=== PATIENT | male | born 1995 | race Caucasian/White ===

== ENCOUNTER 2018-04-12 12:20 | Emergency (ER) | payer BC, SELFPAY ==
[2018-04-12 12:23] VITALS: BP 127/80; PULSE 84; RESP 16; TEMP 36.6; O2SAT 96
[2018-04-12] MEDS: Dexamethasone 10 MG/ML VIAL IM (12:25)
[2018-04-12] MEDS: Ketorolac 15 MG/ML VIAL IM (12:26)
--- NOTE | 2018-04-12 12:29 | W.ED.GENAD ---
Discharge Plan Disposition Patient Disposition: HOME Condition: Good Discharge Details Chief Complaint: RespSymp Clinical Impression: Upper respiratory infection, viral, Congestion of nasal sinus Primary Care Provider: Kris Guadalupe ED Provider: Mario Mack Home Meds and New Rx's Prescriptions: New albuterol sulfate 90 mcg/actuation HFA aerosol inhaler 1 puff IH Q6H PRN (Reason: shortness of breath or wheezing) Qty: 6.7 RF: 0 diphenhydramine HCl 25 mg capsule 25 mg PO .nightly Qty: 10 RF: 0 Discharge Instructions Instructions: Upper Respiratory Infection (ED) Additional Instructions: Please stop smoking. Please take your albuterol every 4-6 hours while your symptoms persist. Please use the [place] pot as we discussed, please take the Benadryl at night to help with nasal congestion. If you notice any worsening of your symptoms, or any new symptoms such as vomiting, diarrhea, fever, chills, shortness of breath, chest pain, numbness, weakness, or fainting , please return immediately to the emergency department for reevaluation. Please follow up with your primary care provider as soon as possible for reassessment and reevaluation. As always, it was a pleasure participating in your medical care today. Referrals: Kris Guadalupe MD [Primary Care Provider] - Medical Decision Making This is a 23-year-old male with no significant past medical history who does smoke, who presents today for congestion, cough, and upper respiratory infection symptoms. Is been present for 1 week. Physical exam demonstrates no concerning physical exam findings for pneumonia, no hypoxemia, no tachycardia, no fever. Signs and symptoms are consistent with a viral upper respiratory infection most likely worsened by his chronic tobacco use. We will give Decadron and Toradol here in the ED as he has no red flags as a contraindication for his Decadron or Toradol. We will recommend Nus[place] pot at home, and Benadryl for congestion. We discussed red flags which return the patient understands. We also had a long discussion about smoking cessation. I have extensively reviewed the treatment plan and discharge instructions with the patient and their family. I have addressed all patient concerns at this time. The patient and family was made aware of what symptoms to monitor for that would warrant a return to the emergency department. Discussed the plan with the patient and family, they demonstrate verbal understanding and agreement with our assessment and plan at this time. HPI General Date/Time Provider Initiated Documentation: 04/12/18 12:28. HPI Narrative: This is a 23-year-old male with a significant past medical history who presents today for evaluation of 1 week of congestion, cough, some mild productive yellow sputum, mild sore throat, and runny nose, who smokes less than 1 pack/day/day. Patient states that he has had no associated fever, he denies myalgias, chills, chest pain, shortness of breath. He denies any headache, vision changes. Patient denies any other significant sick contacts however he is at school with multiple interactions throughout the day. Patient denies any other complaints at this time. He has not been on any recent antibiotics. He has no previous surgeries, he denies any medications. He denies any IV or illicit drug use Related Data Home Medications Medication Instructions Recorded Confirmed albuterol sulfate 1 puff IH Q6H PRN #6.7 gm 04/12/18 diphenhydramine HCl 25 mg PO .nightly #10 cap 04/12/18 Previous Rx's Medication Instructions Recorded albuterol sulfate 1 puff IH Q6H PRN #6.7 gm 04/12/18 diphenhydramine HCl 25 mg PO .nightly #10 cap 04/12/18 General Stated Complaint: RespSymp JONI: 4 Review of Systems Review of Systems All systems reviewed & are unremarkable except as noted in HPI and below PFSH Social History Smoking/Tobacco Use Status: Current every day Exam Narrative Exam Narrative: 1.Const: Well-nourished, Well-developed, appearing stated age 2.Eyes: PERRL, no conjunctival injection, and symmetrical lids. 3.ENT: Atraumatic external nose and ears. Moist MM. Neck: Symmetric, trachea midline, No thyromegaly. Cobblestoning in the posterior oropharynx. Minimal erythema. No tonsillar exudates. No swollen tonsils. No significant cervical lymphadenopathy. No frontal or maxillary sinus tenderness on percussion. Mild congestion noted in the nares bilaterally. Ears demonstrate no signs of infection, effusion, or fluid. 4.CVS: +S1/S2, No murmurs or gallops. Peripheral pulses 2+ and equal in all extremities. Brisk capillary refill in all extremities. 5.RESP: Unlabored respiratory effort. Clear to auscultation bilaterally. No wheezes rales or rhonchi, no intercostal retractions, no signs of respiratory distress. 6.GI: Soft, Nontender/Nondistended, No hepatosplenomegaly. No guarding or rebound. 7.MSK: Normocephalic/Atraumatic, Extremities w/o deformity or ttp No cyanosis or clubbing, Normal movement of all extremities 8.Skin: Warm, Dry. No rashes or lesions. 9.Neuro: production machine tender II-XII grossly intact. Sensation grossly intact, no focal neurologic deficits. 10.Psych: (AAO) x3. Appropriate mood and affect Course Vital Signs Temperature 36.6 C 04/12/18 12:23 Pulse 84 04/12/18 12:23 Respiratory Rate 16 04/12/18 12:23 Blood Pressure 127/80 04/12/18 12:23 Pulse Oximetry 96 04/12/18 12:23 Temperature 36.6 C 04/12/18 12:23 Temperature Source Skin 04/12/18 12:23 Pulse 84 04/12/18 12:23 Respiratory Rate 16 04/12/18 12:23 Blood Pressure 127/80 04/12/18 12:23 Blood Pressure Position Sitting 04/12/18 12:23 Pulse Oximetry 96 04/12/18 12:23 Oxygen Delivery Method Room Air 04/12/18 12:23 Oxygen Flow Rate 0 04/12/18 12:23
--- NOTE | 2018-04-12 12:34 | ED.GENADUL_ITS ---
Discharge Plan Disposition Patient Disposition: HOME Condition: Good Discharge Details Chief Complaint: RespSymp Clinical Impression: Upper respiratory infection, viral, Congestion of nasal sinus Primary Care Provider: Kris Guadalupe ED Provider: Mairo Mack Home Meds and New Rx's Prescriptions: New albuterol sulfate 90 mcg/actuation HFA aerosol inhaler 1 puff IH Q6H PRN (Reason: shortness of breath or wheezing) Qty: 6.7 RF: 0 diphenhydramine HCl 25 mg capsule 25 mg PO .nightly Qty: 10 RF: 0 Discharge Instructions Instructions: Upper Respiratory Infection (ED) Additional Instructions: Please stop smoking. Please take your albuterol every 4-6 hours while your symptoms persist. Please use the [place] pot as we discussed, please take the Benadryl at night to help with nasal congestion. If you notice any worsening of your symptoms, or any new symptoms such as vomiting, diarrhea, fever, chills , shortness of breath, chest pain, numbness, weakness, or fainting , please return immediately to the emergency department for reevaluation. Please follow up with your primary care provider as soon as possible for reassessment and reevaluation. As always, it was a pleasure participating in your medical care today. Referrals: Kris Guadalupe MD [Primary Care Provider] - Medical Decision Making This is a 23-year-old male with no significant past medical history who does smoke, who presents today for congestion, cough, and upper respiratory infection symptoms. Is been present for 1 week. Physical exam demonstrates no concerning physical exam findings for pneumonia, no hypoxemia, no tachycardia, no fever. Signs and symptoms are consistent with a viral upper respiratory infection most likely worsened by his chronic tobacco use. We will give Decadron and Toradol here in the ED as he has no red flags as a contraindication for his Decadron or Toradol. We will recommend [place] pot at home, and Benadryl for congestion. We discussed red flags which return the patient understands. We also had a long discussion about smoking cessation. I have extensively reviewed the treatment plan and discharge instructions with the patient and their family. I have addressed all patient concerns at this time. The patient and family was made aware of what symptoms to monitor for that would warrant a return to the emergency department. Discussed the plan with the patient and family, they demonstrate verbal understanding and agreement with our assessment and plan at this time. HPI General Date/Time Provider Initiated Documentation: 04/12/18 12:28 . HPI Narrative: This is a 23-year-old male with a significant past medical history who presents today for evaluation of 1 week of congestion, cough , some mild productive yellow sputum, mild sore throat, and runny nose, who smokes less than 1 pack/day/day. Patient states that he has had no associated fever, he denies myalgias, chills, chest pain, shortness of breath. He denies any headache, vision changes. Patient denies any other significant sick contacts however he is at school with multiple interactions throughout the day. Patient denies any other complaints at this time. He has not been on any recent antibiotics. He has no previous surgeries, he denies any medications. He denies any IV or illicit drug use Related Data Home Medications Medication Instructions Recorded Confirmed albuterol sulfate 1 puff IH Q6H PRN #6.7 gm 04/12/18 diphenhydramine HCl 25 mg PO .nightly #10 cap 04/12/18 Previous Rx's Medication Instructions Recorded albuterol sulfate 1 puff IH Q6H PRN #6.7 gm 04/12/18 diphenhydramine HCl 25 mg PO .nightly #10 cap 04/12/18 General Stated Complaint: RespSymp JONI: 4 Review of Systems Review of Systems All systems reviewed & are unremarkable except as noted in HPI and below PFSH Social History Smoking/Tobacco Use Status: Current every day Exam Narrative Exam Narrative: 1.Const: Well-nourished, Well-developed, appearing stated age 2.Eyes: PERRL, no conjunctival injection, and symmetrical lids. 3.ENT: Atraumatic external nose and ears. Moist MM. Neck: Symmetric, trachea midline, No thyromegaly. Cobblestoning in the posterior oropharynx. Minimal erythema. No tonsillar exudates. No swollen tonsils. No significant cervical lymphadenopathy. No frontal or maxillary sinus tenderness on percussion. Mild congestion noted in the nares bilaterally. Ears demonstrate no signs of infection, effusion, or fluid. 4.CVS: +S1/S2, No murmurs or gallops. Peripheral pulses 2+ and equal in all extremities. Brisk capillary refill in all extremities. 5.RESP: Unlabored respiratory effort. Clear to auscultation bilaterally. No wheezes rales or rhonchi, no intercostal retractions, no signs of respiratory distress. 6.GI: Soft, Nontender/Nondistended, No hepatosplenomegaly. No guarding or rebound. 7.MSK: Normocephalic/Atraumatic, Extremities w/o deformity or ttp No cyanosis or clubbing, Normal movement of all extremities 8.Skin: Warm, Dry. No rashes or lesions. 9.Neuro: newcomer hostess II-XII grossly intact. Sensation grossly intact, no focal neurologic deficits. 10.Psych: (AAO) x3. Appropriate mood and affect Course Vital Signs Temperature 36.6 C 04/12/18 12:23 Pulse 84 04/12/18 12:23 Respiratory Rate 16 04/12/18 12:23 Blood Pressure 127/80 04/12/18 12:23 Pulse Oximetry 96 04/12/18 12:23 Temperature 36.6 C 04/12/18 12:23 Temperature Source Skin 04/12/18 12:23 Pulse 84 04/12/18 12:23 Respiratory Rate 16 04/12/18 12:23 Blood Pressure 127/80 04/12/18 12:23 Blood Pressure Position Sitting 04/12/18 12:23 Pulse Oximetry 96 04/12/18 12:23 Oxygen Delivery Method Room Air 04/12/18 12:23 Oxygen Flow Rate 0 04/12/18 12:23
== END 2018-04-12 12:45 | disposition home or self-care (01) ==
PROVIDERS: Emergency Provider Student in an Organized Health Care Education/Training Program; PCP General Practice
DX: J06.9 Acute upper respiratory infection, unspecified (principal); R09.81 Nasal congestion; F17.210 Nicotine dependence, cigarettes, uncomplicated
CPT/HCPCS: 96372; 99284; J1100; J1885

== ENCOUNTER 2018-06-06 18:06 | Emergency (ER) | payer BC, SELFPAY ==
[2018-06-06 18:14] VITALS: BP 118/73; PULSE 84; RESP 18; TEMP 36.8
--- NOTE | 2018-06-06 18:19 | ED.GENADUL_ITS ---
Discharge Plan Disposition Patient Disposition: HOME Condition: Stable Discharge Details Chief Complaint: Sorethroat Clinical Impression: Strep pharyngitis Reason For Visit: swollen lymph nodes / facial sore Primary Care Provider: Kris Guadalupe ED Provider: Estrellita Pillai Home Meds and New Rx's Prescriptions: Continue albuterol sulfate 90 mcg/actuation HFA aerosol inhaler 1 puff IH Q6H PRN (Reason: shortness of breath or wheezing) Qty: 6.7 RF: 0 acetaminophen [Tylenol] 325 mg Tablet 2 PRNRF: 0 naproxen 250 mg Tablet 1 tab PO PRNRF: 0 Discharge Instructions Instructions: Pharyngitis (ED) Additional Instructions: Drink plenty of fluids and get plenty of rest. Alternate Tylenol and Motrin as needed and directed for pain or fever. Follow-up with your primary care doctor in 1 week for re-evaluation. Return immediately to the emergency department any worsening or new concerning symptoms. Stand Alone Forms: School Release, Work Release Discharge Data Discharge Physician: Estrellita Pillai Medical Decision Making 23yo M who presents with sore throat, left ear pain, diarrhea, lower abdominal pain, swollen lymph nodes, fatigue and headache for the past 5 days. Vitals within normal limits. Afebrile. Patient appears nontoxic. Posterior pharyngeal erythema, edema and exudates. No peritonsillar mass noted. Uvula midline. Patient has bilateral anterior cervical and submandibular lymphadenopathy but no evidence of Davi's angina, drooling or trismus. Lungs clear to auscultation. Abdomen soft nontender. No hepatosplenomegaly. Symptom presentation appears more consistent with likely mono, may also be viral syndrome or strep pharyngitis. Will check a rapid strep and [place] screening. 1899 --mono screen negative. Rapid strep positive. Patient preferred Bicillin injection over p.o. antibiotics. Patient also informed that there is a small percentage of mono screening that can be false negative. Informed of possible drug rash with pcn in mono. Pt instructed on the importance of plenty of fluids and rest, alternating Tylenol and Motrin. Patient instructed to follow-up with primary care doctor for reevaluation and to return here if worse. HPI General Mode of arrival: ambulatory . Date/Time Provider Initiated Documentation: 06/06/18 18:07 . Limitations to Documentation: no limitations . Information obtained by: patient . HPI Narrative: Patient is a 23-year-old male who presents to the ED with complaint of sore throat, swollen glands in the neck, diarrhea, lower abdominal pain, left ear pain, headache and fatigue for the past several days. Patient admits to chills and feeling warm but denies known fever. Patient states he has been eating and drinking normally. Past medical history: Anxiety, depression Surgical history: None Social history: Daily marijuana use 2-3 times daily, denies tobacco or alcohol Medications: Albuterol as needed Allergies: None PCP: Dr. Guadalupe Related Data Home Medications Medication Instructions Recorded Confirmed albuterol sulfate 1 puff IH Q6H PRN #6.7 gm 04/12/18 acetaminophen [Tylenol] 2 PRN 06/06/18 naproxen 1 tab PO PRN 06/06/18 Previous Rx's Medication Instructions Recorded albuterol sulfate 1 puff IH Q6H PRN #6.7 gm 04/12/18 Allergies Allergy/AdvReac Type Severity Reaction Status Date / Time No Known Allergies Allergy Unverified 06/06/18 18:17 General Stated Complaint: Sorethroat JONI: 4 Review of Systems Review of Systems All systems reviewed & are unremarkable except as noted in HPI and below Constitutional Reports chills, Denies excessive sweating, Reports fatigue, Denies fever(s), Denies weakness and Denies weight loss Eyes Reports system reviewed and no additional complaints, except as docu and Denies blurry vision ENT Denies vertigo, Denies dizziness, Reports otalgia, Denies nasal congestion, Reports sore throat and Reports throat swelling Cardiovascular Denies chest pain, Denies syncope, Denies rapid heart rate and Denies dyspnea Respiratory Denies dyspnea Gastrointestinal Denies abdominal pain, Reports diarrhea and Denies vomiting Genitourinary Denies hematuria, Denies dysuria and Denies flank pain Musculoskeletal Denies back pain and Denies joint swelling Integumentary/Breasts Denies lesions and Denies rash Neurologic Denies behavioral changes, Denies confusion, Denies vertigo, Denies dizziness, Denies syncope and Denies weakness Psychiatric Denies behavioral changes, Denies confusion and Denies depression Endocrine Denies excessive sweating and Reports fatigue Hematologic/Lymphatic Denies easy bruising and Denies lymphadenopathy Allergic/Immunologic Reports throat swelling PFS Social History Smoking/Tobacco Use Status: Former Tobacco Use Exam Const General: cooperative and healthy appearing Orientation: alert and awake [facility] Head: normal to inspection Ears: hearing grossly normal bilaterally, external ears normal and TM's normal bilaterally General nose exam: external nose normal Face and sinus: normal facial exam Mouth: oral mucosae normal Teeth and gingiva: dentition normal Throat: uvula midline, no peritonsillar masses, posterior oropharynx abnormal (b /l tonsillar edema/erythema/exudates) and no uvular edema Eyes General: appearance normal, both eyes and all related structures Eyelids: eyelids normal Pupils: PERRL EOM: EOM intact bilaterally Neck Other: Tender midline submandibular and bilateral anterior cervical lymphadenopathy. Chest Chest: normal inspection of the chest Resp Effort & Inspection: normal respiratory effort and able to speak in complete sentences Auscultation: clear to auscultation bilaterally Cardio Rate: regular rate Rhythm: regular rhythm GI Inspection: normal to inspection Palpation: soft, not firm, no guarding, no hepatosplenomegaly, no masses and nontender Auscultation: normal bowel sounds Skin General skin exam: no rashes or lesions noted Neuro General: alert and awake Cognition: normal cognition Speech: speech normal Gait: normal gait Motor: muscle tone normal throughout Sensory Exam: no sensory deficits noted Extrem General: normal to inspection, full ROM and normal capillary refill Psych Appearance: grossly normal Mental Status: mental status grossly normal Speech and Movement: speech and movement normal Affect: normal affect Thought Process: normal Course Vital Signs Temperature 98.2 F 06/06/18 18:14 Pulse 84 06/06/18 18:14 Respiratory Rate 18 06/06/18 18:14 Blood Pressure 118/73 06/06/18 18:14 Temperature 98.2 F 06/06/18 18:14 Temperature Source Temporal Artery Scan 06/06/18 18:14 Pulse 84 06/06/18 18:14 Respiratory Rate 18 06/06/18 18:14 Respiratory Effort 06/06/18 18:15 Blood Pressure 118/73 06/06/18 18:14 Blood Pressure Position Sitting 06/06/18 18:14 Oxygen Delivery Method Room Air 06/06/18 18:14 Oxygen Flow Rate 0 06/06/18 18:14
[2018-06-06 18:55] LABS: Mono Screening Negative (Negative)
== END 2018-06-06 19:55 | disposition home or self-care (01) ==
LOC: ER 19:53
PROVIDERS: Emergency Provider Physician Assistant; PCP General Practice
DX: J02.0 Streptococcal pharyngitis (principal)
CPT/HCPCS: 36415; 87880; 96372; 99284; 86308; J0561

== ENCOUNTER 2019-02-27 10:32 | Outpatient (CLI) | payer BC, SELFPAY ==
[2019-02-28 11:09] LABS: Hemoglobin S Screen Neg (NEG)
== END 2019-02-27 10:52 ==
PROVIDERS: PCP General Practice; Visit Provider General Practice
DX: Z13.0 Encounter for screening for diseases of the blood and blood-forming organs and certain disorders involving the immune mechanism (principal); Z02.0 Encounter for examination for admission to educational institution
CPT/HCPCS: 36415; 85660

== ENCOUNTER 2019-11-04 12:30 | Emergency (ER) | payer BC, SELFPAY ==
[2019-11-04 12:35] VITALS: BP 144/91; PULSE 84; RESP 18; TEMP 37.4; O2SAT 100
--- NOTE | 2019-11-04 12:39 | ED.GENADUL_ITS ---
Discharge Plan Disposition Patient Disposition: HOME Condition: Improving Discharge Details Chief Complaint: Orthopedic Clinical Impression: Left ankle sprain Primary Care Provider: None,None ED Provider: Ezio Burnett Home Meds and New Rx's Prescriptions: No Action No Known Home Meds RF: 0 Discharge Instructions Instructions: Ankle Sprain (ED) Additional Instructions: May remove stabilizer well in bed or for bathing. Use rest, ice, elevation to reduce pain and swelling. You may use Tylenol and/or ibuprofen as needed for pain. Use crutches as we discussed, as needed 3 to 5 days time and then slowly wean from the ankle stabilizer. Return to the emergency department for any acute concerns. Medical Decision Making 24-year-old male presents from home after spraining his left ankle yesterday while playing basketball. He is developed progressive left lateral malleoli are swelling with ecchymosis and intolerance of significant weightbearing, but has been ambulatory. Differential diagnosis includes underlying fracture versus sprain. X-ray with evidence of significant soft tissue swelling, but no underlying bony abnormality. He does have significant sprain. Will place in a ankle stabilizer with crutches to be used as needed. Understands slow weaning from crutches and then weaning from the walking boot. Discussed with him return indications as well as home management. Stable for discharge home at this time. HPI General Mode of arrival: ambulatory . Date/Time Provider Initiated Documentation: 11/04/19 12:39 . Limitations to Documentation: no limitations . Information obtained by: patient . History of Present Illness 24 year old M presents to the emergency department with the chief complaint of Ankle pain left, described as moderate, Quality is described as dull and constant, and is localized to the left and lower extremity. Patient reports no radiation. Patient started experiencing this hour(s) and it has been constant. Rest improves symptom(s), Movement worsens symptoms . Patient notes no other symptoms.. Related Data Home Medications Medication Instructions Recorded Confirmed Unknown [No Known Home Meds] 11/04/19 11/04/19 Allergies Allergy/AdvReac Type Severity Reaction Status Date / Time No Known Allergies Allergy Unverified 11/04/19 12:38 General Stated Complaint: Orthopedic JONI: 4 Review of Systems Narrative: Did not injure himself in any other way. Recently has been well. 4 systems reviewed and otherwise negative [facility] Social History Smoking/Tobacco Use Status: Former Tobacco Use Alcohol Intake: current Alcohol Intake frequency: a few times a month Drug use: Daily Substance use type: marijuana Do you feel safe at home: Yes Do you feel safe in your relationship?: Yes Exam Narrative Exam Narrative: GEN: awake, alert, oriented 3. Pleasant, well groomed, interactive. HEAD: Normocephalic, atraumatic ENT: Mucous membranes moist, oropharynx unremarkable, External ear exam unremarkable EYES: PERRL, EOMI NECK: Full ROM, no JAVY, no menigismus EXT: Right lower extremity unremarkable, left lower extremity with lateral malleoli are swelling, tenderness, bruising through the lateral foot. Motion is limited by pain but strength is intact. Capillary fill less than 2 seconds Neuro: Grossly normal neurologic exam, conversant, interactive. Psych: Speech fluent, thoughts congruent, affect normal Course Vital Signs Vital signs: Vital Signs Temperature 37.4 C 11/04/19 12:35 Pulse 84 11/04/19 12:35 Respiratory Rate 18 11/04/19 12:35 Blood Pressure 144/91 H 11/04/19 12:35 Pulse Oximetry 100 11/04/19 12:35 Temperature 37.4 C 11/04/19 12:35 Temperature Source Temporal Artery Scan 11/04/19 12:35 Pulse 84 11/04/19 12:35 Respiratory Rate 18 11/04/19 12:35 Blood Pressure 144/91 H 11/04/19 12:35 Blood Pressure Position Sitting 11/04/19 12:35 Pulse Oximetry 100 11/04/19 12:35 Oxygen Delivery Method Room Air 11/04/19 12:35 Oxygen Flow Rate 0 11/04/19 12:35 Pain Level 3 11/04/19 12:35
--- NOTE | 2019-11-04 13:00 | DI.RAD_ITS ---
EXAM: XR ANKLE LT COMPLETE CLINICAL HISTORY: lateral pain and swelling TECHNIQUE: 2D digital imaging was performed. COMPARISON: No exams were available for comparison FINDINGS: BONES: No acute fracture is present. No bony destructive lesion is seen. JOINTS:The ankle mortise is normally aligned. SOFT TISSUE: Moderate soft tissue swelling is seen laterally. IMPRESSION: No acute fracture or dislocation. DATA REPOSITORY: RADIATION DOSE DELIVERED:
--- NOTE | 2019-11-04 13:03 | DI.VRAD_ITS ---
PROCEDURE INFORMATION: Exam: XR Left Ankle Exam date and time: 11/04/2019 12:54 PM Age: 24 years old Clinical indication: Patient HX: Left ankle pain after injury playing basketball. TECHNIQUE: Imaging protocol: XR Left ankle. Views: 3 or more views. COMPARISON: No relevant prior studies available. FINDINGS: The bony structures are in anatomic alignment. No fracture is present. No radiopaque foreign body is identified. The joint spaces are well maintained. Moderate lateral soft tissue swelling. IMPRESSION: Lateral soft tissue swelling with no evidence of acute bony abnormality. Dictated and Authenticated by: Lance Mccarty MD. Ordering:TRAVON Holguin MD
[2019-11-04 13:16] VITALS: BP 144/91; PULSE 84; RESP 18; TEMP 37.4; O2SAT 100
== END 2019-11-04 13:10 | disposition home or self-care (01) ==
PROVIDERS: Emergency Provider Emergency Medicine
DX: S93.402A Sprain of unspecified ligament of left ankle, initial encounter (principal); X58.XXXA Exposure to other specified factors, initial encounter; Y93.67 Activity, basketball
CPT/HCPCS: 29515; 99284; 73610; 99283; E0114; L1902